=== PATIENT | male | born 1960 | race Caucasian/White ===

== ENCOUNTER 2016-02-25 12:21 | Emergency (ER) | payer OTHER ==
[~2016-02-25] VITALS: Ht 182.9 cm; Wt 152.5 kg
[~2016-02-25 12:21] MED LIST: ALBU2.5V3 NEB; ALBU8.5H3 INH; ARIP15TA2 PO; ASPI81TA3 PO; ATOR80TA75 PO; BENA20TA48 PO; CARV6.25 PO; FURO40TA4 PO; POTA20TA15 PO
[2016-02-25 12:34] VITALS: Ht 182.9 cm; Wt 152.5 kg
[2016-02-25] MEDS ORDERED: IPRATROPIUM (NEB) 0.5 MG/2.5 ML AMP NEB STA (13:31)
[2016-02-25] MEDS ORDERED: predniSONE 20 MG TAB PO STA (13:31)
[2016-02-25] MEDS ORDERED: ALBUTEROL 0.5% (NEB) 2.5 MG/0.5 ML AMP NEB STA (13:31)
[2016-02-25] MEDS ORDERED: AZITHROMYCIN 250 MG TAB PO ONE (14:00)
[2016-02-25] MEDS ORDERED: PRED20TA PO (14:25)
[2016-02-25] MEDS ORDERED: AZIT250T94 PO (14:25)
[2016-02-25] MEDS ORDERED: ALBU18HF INHALATION (14:25)
--- NOTE | 2016-02-25 14:29 | ERD ---
ER Documentation Chief Complaint Date/Time DATE: 02/25/16 TIME: 14:26 Chief Complaint sob x 1 week, hx copd and chf HPI Patient is a 55-year-old male with CHF and COPD who presents with shortness of breath. He has run out of his inhaler recently. He says "I think I have COPD exacerbation". He said that he needs a breathing treatment. The symptoms started 1 week ago and have gotten worse. He denies chest pain. He has no fevers. Upon review of old medical records the patient has multiple visits to the ER for similar complaints. Review of the emergency department information exchange shows multiple visits for similar. His primary doctor is at [facility]. ROS All systems reviewed and are negative except as per history of present illness. Medications Home Meds Active Scripts Azithromycin* (Zithromax*) 250 Mg Tablet, 250 MG PO DAILY for 4 Days, TAB Prov:BARBARA CORNELIUS MD 02/25/16 Prednisone* (Prednisone*) 20 Mg Tab, 60 MG PO DAILY for 4 Days, TAB Prov:BARBARA CORNELIUS MD 02/25/16 Albuterol Sulfate* (Ventolin HFA*) 18 Gm Hfa.aer.ad, 2 PUFF INHALATION Q4H, #1 INHALER Prov:BARBARA CORNELIUS MD 02/25/16 Albuterol Sulfate* (Proair HFA*) 8.5 Gm Hfa.aer.ad, 2 PUFF INH Q4, #1 INHALER Prov:DAVONTE ARTEAGA DO 10/11/15 Albuterol Sulfate* (Albuterol Sulfate* Neb) 0.083%-3 Ml Neb, 2.5 MG NEB Q4H, # 60 EA Prov:GT CARTER 12/03/14 Aspirin* (Aspirin* Chew) 81 Mg Tab.chew, 81 MG PO DAILY, #60 TAB.CHEW Prov:AMBREEN PITTMAN 08/11/14 Reported Medications Atorvastatin* (Atorvastatin*) 80 Mg Tablet, 80 MG PO QHS, #30 TAB 01/27/16 Aripiprazole* (Abilify*) 15 Mg Tablet, 15 MG PO DAILY, #30 TAB 01/27/16 Potassium Chloride* (K-Dur*) 20 Meq Tab.prt.sr, 20 MEQ PO DAILY, TAB.SA 01/27/16 Furosemide* (Furosemide*) 40 Mg Tablet, 60 MG PO DAILY, TAB 01/27/16 Benazepril Hcl* (Benazepril Hcl*) 20 Mg Tablet, 20 MG PO DAILY, #30 TAB 07/17/15 Carvedilol* (Coreg*) 6.25 Mg Tablet, 6.25 MG PO BID, #60 TAB 07/17/15 Allergies Allergies: Coded Allergies: No Known Allergies (Verified Allergy, Unknown, 02/25/16) PMhx/Soc History of Surgery: Yes (cataract right eye surgery; appendectomy) Anesthesia Reaction: No Hx Neurological Disorder: No Hx Respiratory Disorders: Yes (copd) Hx Cardiac Disorders: Yes (chf, htn) Hx Psychiatric Problems: No Hx Miscellaneous Medical Probl: No Hx Alcohol Use: No (clarified, per pt no history of alcohol use) Hx Substance Use: Yes (01/26/16) Hx Tobacco Use: Yes Smoking Status: Current every day smoker FmHx Family History: diabetes Physical Exam Vitals Vital Signs Date Time Temp Pulse Resp B/P Pulse Ox O2 Delivery O2 Flow Rate FiO2 02/25/16 13:40 98 2.0 02/25/16 13:38 82 24 98 2.0 02/25/16 13:36 Nasal Cannula 2 02/25/16 13:34 Nasal Cannula 2.0 02/25/16 12:34 97.5 90 24 167/98 96 Physical Exam Const: Mild distress secondary to shortness of breath Head: Atraumatic Eyes: Normal Conjunctiva ENT: Normal External Ears, Nose and Mouth. Neck: Full range of motion..~ No meningismus. Resp: Decreased breath sounds bilaterally Cardio: Regular rate and rhythm, no murmurs Abd: Soft, non tender, non distended. Normal bowel sounds Skin: No petechiae or rashes Back: No midline or flank tenderness Ext: No cyanosis, or edema Neur: Awake and alert Psych: Normal Mood and Affect Results 24 hrs Current Medications Medications (Trade) Dose Ordered Sig/Evelina Route PRN Reason Start Time Stop Time Status Last Admin Dose Admin Albuterol (Proventil 0.5% (Neb)) 5 mg ONCE STAT NEB 02/25/16 13:31 02/25/16 13:33 DC 02/25/16 13:37 Ipratropium [place] (Atrovent 0.02% (Neb)) 0.5 mg ONCE STAT NEB 02/25/16 13:31 02/25/16 13:33 DC 02/25/16 13:37 Prednisone (Prednisone) 60 mg ONCE STAT PO 02/25/16 13:31 02/25/16 13:33 DC 02/25/16 13:55 Azithromycin (Zithromax) 500 mg ONCE ONCE PO 02/25/16 14:00 02/25/16 14:01 DC 02/25/16 13:55 Procedures/MDM EKG read by me: Rate/Rhythm: Regular rate and rhythm at a rate of 80 Intervals: Normal Impression: No evidence of ischemia or arrhythmia Chest X-ray 1V Interpreted by me: Soft Tissue: No acute abnormalities Bones: No acute abnormalities Mediastinum/Cardiac Silhouette/Lungs: Cardiomegaly Smoking Cessation Therapy: Pt. was lectured for greater than 3 minutes on the health risks of continued smoking and the benefits of cessation. Patient is a 55-year-old male with COPD and CHF who presents with what appears to be an acute COPD exacerbation. The patient has a chest x-ray which does not show pneumothorax or pneumonia. I will treat the patient with albuterol, Atrovent, Zithromax, and prednisone. I will give a prescription for Ventolin, prednisone, and Zithromax for 4 more days. The patient can follow-up with his primary doctor within 24-48 hours. The patient can return for any worsening symptoms. At this point I doubt acute coronary syndrome, pneumonia, pneumothorax, pulmonary embolism, or aortic dissection. Departure Diagnosis: Primary Impression: COPD exacerbation Additional Impression: Shortness of breath Condition: Fair Patient Instructions: Copd Flare Additional Instructions: Call your primary care doctor TOMORROW for an appointment during the next 1-2 days.See the doctor sooner or return here if your condition worsens before your appointment time. BARBARA CORNELIUS MD Feb 25, 2016 14:28
--- NOTE | 2016-02-25 14:35 | RADRPT ---
PROCEDURE: XR Chest. CLINICAL INDICATION: Shortness of breath TECHNIQUE: Single frontal view of the chest was obtained. COMPARISON: 01/27/2016 FINDINGS: The cardiomediastinal silhouette is moderately enlarged. Pulmonary vasculature is prominent and mil dly indistinct.. The lungs are clear. No signs of pleural fluid or pneumothorax are seen. The osseous structures and soft tissues are unre markable. IMPRESSION: 1. Moderate cardiomegaly. Mild pulmonary edema. 2. No focal consolidation identified. RPTAT: DD .Dick Pedraza MD, MD Date Time Electronically viewed and signed by .Dick Pedraza MD, on 02/25/2016 14:34 .T/
== END 2016-02-25 14:47 | disposition home or self-care (01) ==
LOC: E/R 12:21
DX: J44.1 Chronic obstructive pulmonary disease with (acute) exacerbation (principal); I50.9 Heart failure, unspecified; I10 Essential (primary) hypertension; F17.210 Nicotine dependence, cigarettes, uncomplicated; Z79.82 Long term (current) use of aspirin
CPT/HCPCS: 71010; 93005; 94664; J7512; Z7502; Z7610